=== PATIENT | male | born 1965 | race Caucasian/White ===

== ENCOUNTER 2022-10-28 11:07 | Outpatient (CLI) | payer OTHER, SELFPAY ==
[2022-10-28 15:58] LABS: Strep A DNA Probe* NOT DETECTED (Not Detectd)
== END 2022-10-28 11:08 | disposition home or self-care (01) ==
LOC: KYNREF 11:07
PROVIDERS: Visit Provider Nurse Practitioner Family
DX: J02.9 Acute pharyngitis, unspecified (principal)
CPT/HCPCS: 87651